=== PATIENT | female | born 1990 | race Caucasian/White ===

== ENCOUNTER → 2017-03-23 | Outpatient (CLI) | payer MEDICAID ==
--- NOTE | 2017-03-23 16:29 | RADIOLOGY REPORT (SQ) ---
EXAM DESCRIPTION: U/S [id number] TRNABD 1GES W/ODOP COMPLETED DATE/TIME: 03/23/2017 3:22 pm REASON FOR STUDY: ENC FOR SUPERVISION OF OTHER NORMAL , FIRST TRIMESTER (Z34.81) Z34.81 EN COUNTER FOR SUPRVSN OF NORMAL , FIRST TRIM COMPARISON: OB ultrasound 01/23/2016 TECHNIQUE: Transabdominal static and realtime grayscale images acquired of the pelvis. Additional se lected spectral and color Doppler images recorded. All images stored on PACs. bHCG: Not available LIMITATIONS: None. FINDINGS: FETUS: Living intrauterine . EGA: 11 weeks 0 days ALLY: 10/12/2017 FHR: 153 beats per minute. SUBCHORIONIC BLEED: 9 SIZE OF BLEED: Not applicable. UTERUS: 10 x 9 x 6 cm in size CERVICAL LENGTH: 3 cm Closed. RIGHT ADNEXA: Not visualized LEFT ADNEXA: Not visualized FREE FLUID: None. OTHER: No other significant finding. IMPRESSION: LIVING INTRAUTERINE . EGA 11 weeks 0 days Trimester of : First - 0 to 13 weeks. TECHNICAL DOCUMENTATION: JOB ID: [id number] [employer]- All Rights Reserved
== END ==
LOC: RAD 13:51
PROVIDERS: ATTEND Nurse Practitioner Women's Health
DX: Z34.81 Encounter for supervision of other normal pregnancy, first trimester (principal)
CPT/HCPCS: 76801

== ENCOUNTER 2017-05-02 20:47 | Emergency (ER) | payer MEDICAID ==
--- NOTE | 2017-05-02 21:52 | ER Document Report ---
ED Medical Screen (RME) - General Chief Complaint: Abdominal Pain Stated Complaint: ABDOMINAL PAIN Time Seen by Provider: 05/02/17 21:50 Mode of Arrival: Ambulatory Information source: Patient Notes: 26-year-old female presents to ED for abdominal pain with nausea. Vomiting and diarrhea this morning. She is 17 weeks , her last ultrasound was a week ago. She denies any fever. Abdomen soft bowel sounds present lungs clear. I have greeted and performed a rapid initial assessment of this patient. A comprehensive ED assessment and evaluation of the patient, analysis of test results and completion of medical decision making process will be conducted by an additional ED providers. TRAVEL OUTSIDE OF THE [place] IN LAST 30 DAYS: No - Related Data Allergies/Adverse Reactions: No Known Allergies Allergy (Unverified 05/02/17 21:12) Past Medical History Renal/ Medical History: Denies: Hx Peritoneal Dialysis Past Surgical History: Reports: Hx Section - Immunizations Hx Diphtheria, Pertussis, Tetanus Vaccination: No Physical Exam - Vital signs Vitals: Temp Pulse Resp BP Pulse Ox 98.4 F 94 18 121/50 L 100 05/02/17 21:08 05/02/17 21:08 05/02/17 21:08 05/02/17 21:08 05/02/17 21:08 Course - Vital Signs Vital signs: Temp Pulse Resp BP Pulse Ox 98.4 F 94 18 121/50 L 100 05/02/17 21:08 05/02/17 21:08 05/02/17 21:08 05/02/17 21:08 05/02/17 21:08 - Laboratory Result Diagrams: 05/02/17 21:25 05/02/17 21:25
[2017-05-02 21:56] LABS: ABSOLUTE LYMPHOCYTES (AUTO) 1.3 10^3/uL (0.5-4.7); ABSOLUTE MONOCYTES (AUTO) 0.6 10^3/uL (0.1-1.4); ABSOLUTE NEUT (AUTO) 9.2 10^3/uL (1.7-8.2); BASOPHILS % (AUTO) 0.2 % (0-2); EOSINOPHILS % (AUTO) 0.4 % (0-6); HEMATOCRIT 33.9 % (36.0-47.0); HEMOGLOBIN 11.8 g/dL (12.0-15.5); HGB HCT DIFFERENCE 1.5; LYMPHOCYTES % (AUTO) 11.8 % (13-45); MEAN CORPUSCULAR HEMOGLOBIN 33.4 pg (27.0-33.4); MEAN CORPUSCULAR HGB CONC 34.9 g/dL (32.0-36.0); MEAN CORPUSCULAR VOLUME 96 fl (80-97); MONOCYTES % (AUTO) 5.7 % (3-13); RED BLOOD COUNT 3.54 10^6/uL (3.72-5.28); RED CELL DISTRIBUTION WIDTH 13.2 % (11.5-14.0); SEGMENTED NEUTROPHILS % (AUTO) 81.9 % (42-78); WHITE BLOOD COUNT 11.2 10^3/uL (4.0-10.5)
[2017-05-02 21:58] LABS: APPEARANCE,URINE CLEAR; BILIRUBIN,URINE NEGATIVE (NEGATIVE); GLUCOSE, URINE NEGATIVE (NEGATIVE); KETONES,URINE NEGATIVE (NEGATIVE); LEUKOCYTE ESTERASE,URINE NEGATIVE (NEGATIVE); NITRITE,URINE NEGATIVE (NEGATIVE); PROTEIN,URINE NEGATIVE (NEGATIVE); URINE SPECIFIC GRAVITY 1.006; UROBILINOGEN,URINE NEGATIVE mg/dL (<2.0)
[2017-05-02 22:10] LABS: ALANINE AMINOTRANSFERASE 21 U/L (9-52); ALBUMIN 3.6 g/dL (3.5-5.0); ALKALINE PHOSPHATASE 78 U/L (38-126); ANION GAP 9 (5-19); ASPARTATE AMINO TRANSFERASE 11 U/L (14-36); BILIRUBIN,DIRECT 0.3 mg/dL (0.0-0.4); BILIRUBIN,TOTAL 0.3 mg/dL (0.2-1.3); BLOOD UREA NITROGEN 7 mg/dL (7-20); CALCIUM 9.2 mg/dL (8.4-10.2); CARBON DIOXIDE 25 mmol/L (22-30); CHLORIDE 104 mmol/L (98-107); CREATININE RESULT 0.57 mg/dL (0.52-1.25); GLUCOSE 96 mg/dL (75-110); POTASSIUM 4.5 mmol/L (3.6-5.0); SODIUM 137.5 mmol/L (137-145); TOTAL PROTEIN 6.5 g/dL (6.3-8.2)
--- NOTE | 2017-05-03 00:57 | ER Document Report ---
ED General - General Chief Complaint: Abdominal Pain Stated Complaint: ABDOMINAL PAIN Time Seen by Provider: 05/02/17 21:50 Mode of Arrival: Ambulatory Notes: Patient is a 26-year-old female A1 at 17 weeks who presents with an episode of lower abdominal pain radiating to her bilateral hips that was present earlier today but has since resolved. States when it was present it was a severe, aching, stabbing pain to the lower abdomen. It did resolve without intervention. Nothing triggered the episode. She does not believe she has had similar symptoms in the past. She denies any associated nausea, vomiting or fever. TRAVEL OUTSIDE OF THE [place] IN LAST 30 DAYS: No - Related Data Allergies/Adverse Reactions: codeine Allergy (Verified 05/02/17 23:44) Past Medical History - General Information source: Patient - Social History Smoking Status: Never Smoker Frequency of alcohol use: None Drug Abuse: None Lives with: Spouse/Significant other Family History: Reviewed & Not Pertinent Patient has suicidal ideation: No Patient has homicidal ideation: No Renal/ Medical History: Denies: Hx Peritoneal Dialysis Past Surgical History: Reports: Hx Section - Immunizations Hx Diphtheria, Pertussis, Tetanus Vaccination: No Review of Systems - Review of Systems Notes: Constitutional: Negative for fever. HENT: Negative for sore throat. Eyes: Negative for visual changes. Cardiovascular: Negative for chest pain. Respiratory: Negative for shortness of breath. Gastrointestinal: Positive for abdominal pain now resolved Genitourinary: Negative for dysuria. Musculoskeletal: Negative for back pain. Skin: Negative for rash. Neurological: Negative for headaches, weakness or numbness. 10 point ROS negative except as marked above and in HPI. Physical Exam - Vital signs Vitals: Temp Pulse Resp BP Pulse Ox 98.4 F 94 18 121/50 L 100 05/02/17 21:08 05/02/17 21:08 05/02/17 21:08 05/02/17 21:08 05/02/17 21:08 Interpretation: Normal Notes: PHYSICAL EXAMINATION: GENERAL: Well-appearing, well-nourished and in no acute distress. HEAD: Atraumatic, normocephalic. EYES: Pupils equal round and reactive to light, extraocular movements intact, sclera anicteric, conjunctiva are normal. ENT: nares patent, oropharynx clear without exudates. Moist mucous membranes. NECK: Normal range of motion, supple without lymphadenopathy LUNGS: Breath sounds clear to auscultation bilaterally and equal. No wheezes rales or rhonchi. HEART: Regular rate and rhythm without murmurs ABDOMEN: Soft, nontender, normoactive bowel sounds. No guarding, no rebound. No masses appreciated. EXTREMITIES: Normal range of motion, no pitting or edema. No cyanosis. NEUROLOGICAL: No focal neurological deficits. Moves all extremities spontaneously and on command. PSYCH: Normal mood, normal affect. SKIN: Warm, Dry, normal turgor, no rashes or lesions noted. Course - Re-evaluation Re-evalutation: 05/03/17 00:56 Patient is currently and presenting with lower abdominal pain. No vaginal bleeding or discharge. Bedside ultrasound shows a viable intrauterine , appropriate cardiac activity and active movement. Patient denies any dysuria and urinalysis is not consistent with an acute urinary tract infection. The patient does not have any focal right lower quadrant tenderness, rebound or guarding to suggest acute appendicitis. No right upper quadrant tenderness to suggest cholestasis of or an acute cholecystitis. Patient has tolerated oral intake here in the emergency department without difficulty. Vitals are within normal limits. At this time will discharge with return precautions and follow-up recommendations. Verbal discharge instructions given a the bedside and opportunity for questions given. Medication warnings reviewed. Patient is in agreement with this plan and has verbalized understanding of return precautions and the need for primary care follow-up in the next 24-72 hours. - Vital Signs Vital signs: Temp Pulse Resp BP Pulse Ox 98.4 F 89 20 127/76 H 100 05/02/17 21:08 05/03/17 01:00 05/03/17 01:00 05/03/17 01:00 05/03/17 01:00 - Laboratory Result Diagrams: 05/02/17 21:25 05/02/17 21:25 Laboratory results interpreted by me: 05/02/17 05/02/17 21:25 21:25 WBC 11.2 H RBC 3.54 L Hgb 11.8 L Hct 33.9 L Seg Neutrophils % 81.9 H Lymphocytes % 11.8 L Absolute Neutrophils 9.2 H AST 11 L Beta HCG, Quant 55958.00 H Discharge - Discharge Clinical Impression: Abdominal pain during in second trimester Condition: Good Disposition: HOME, SELF-CARE Additional Instructions: Please follow-up with your [facility] as needed. Return if you have worsening of your abdominal pain, vaginal bleeding, vaginal discharge, persistent vomiting, fever greater than 101F, or any other symptoms that are worrisome to you. Referrals: STARR HENRIQUEZ MD [Primary Care Provider] - Follow up as needed
[2017-05-03 01:00] VITALS: BP 127/76
== END 2017-05-03 01:00 | disposition home or self-care (01) ==
LOC: ER 20:47
DX: O26.892 Other specified pregnancy related conditions, second trimester (principal); R10.30 Lower abdominal pain, unspecified; Z3A.17 17 weeks gestation of pregnancy; Z88.5 Allergy status to narcotic agent
CPT/HCPCS: 36415; 80053; 81001; 83690; 84702; 85025; 99284

== ENCOUNTER 2017-10-06 05:03 | Inpatient (IN) | payer MEDICAID ==
[2017-10-05 12:46] LABS: APPEARANCE,URINE SLIGHTLY-CLOUDY; BILIRUBIN,URINE NEGATIVE (NEGATIVE); COLOR,URINE YELLOW; GLUCOSE, URINE NEGATIVE (NEGATIVE); KETONES,URINE NEGATIVE (NEGATIVE); LEUKOCYTE ESTERASE,URINE NEGATIVE (NEGATIVE); NITRITE,URINE NEGATIVE (NEGATIVE); PROTEIN,URINE NEGATIVE (NEGATIVE); URINE SPECIFIC GRAVITY 1.014; UROBILINOGEN,URINE NEGATIVE mg/dL (<2.0)
[2017-10-05 12:47] LABS: ABSOLUTE EOSINOPHILS # (AUTO) 0.1 10^3/uL (0.0-0.6); ABSOLUTE LYMPHOCYTES (AUTO) 1.7 10^3/uL (0.5-4.7); ABSOLUTE MONOCYTES (AUTO) 0.8 10^3/uL (0.1-1.4); ABSOLUTE NEUT (AUTO) 8.3 10^3/uL (1.7-8.2); BASOPHILS % (AUTO) 0.1 % (0-2); EOSINOPHILS % (AUTO) 0.6 % (0-6); HEMATOCRIT 34.9 % (36.0-47.0); HEMOGLOBIN 12.1 g/dL (12.0-15.5); LYMPHOCYTES % (AUTO) 15.9 % (13-45); MEAN CORPUSCULAR HEMOGLOBIN 32.6 pg (27.0-33.4); MEAN CORPUSCULAR HGB CONC 34.7 g/dL (32.0-36.0); MEAN CORPUSCULAR VOLUME 94 fl (80-97); MONOCYTES % (AUTO) 7.4 % (3-13); PLATELET COUNT 254 10^3/uL (150-450); RED BLOOD COUNT 3.72 10^6/uL (3.72-5.28); TOTAL CELLS COUNTED % (AUTO) 100 %; WHITE BLOOD COUNT 10.8 10^3/uL (4.0-10.5)
[2017-10-05 12:58] LABS: URINE AMPHETAMINES SCREEN NEGATIVE; URINE BARBITURATES SCREEN NEGATIVE; URINE BENZODIAZEPINES SCREEN NEGATIVE; URINE COCAINE SCREEN NEGATIVE; URINE METHADONE SCREEN NEGATIVE; URINE PHENCYCLIDINE SCREEN NEGATIVE
[2017-10-05 13:29] LABS: URINE MARIJUANA (THC) SCREEN UNCONFIRMED POSITIVE
[~2017-10-06 05:03] MED LIST: CEFAZOLIN 2 GM/D5W RTU 2 GM/50 ML RTUPB IV PRN
[2017-10-06] MEDS ORDERED: RINGERS SOLUTION,LACTATED 1,000 ML IV PRN ×2 (06:21→10:16)
[2017-10-06] MEDS ORDERED: RINGERS SOLUTION,LACTATED 1,000 ML IV ONE (06:30)
[2017-10-06] MEDS ORDERED: ONDANSETRON HCL INJ/PF 4 MG/2 ML SDV ONE (07:22)
[2017-10-06] MEDS ORDERED: PROPOFOL INJ 200 MG/20 ML VIAL IV ONE (07:22)
[2017-10-06] MEDS ORDERED: KETAMINE HCL INJ 500 MG/10 ML VIAL ONE (07:22)
[2017-10-06] MEDS ORDERED: OXYTOCIN/NORMAL SALINE 20 UNIT/1,000 ML RTUINJ ONE (07:22)
[2017-10-06] MEDS ORDERED: EPHEDRINE SULFATE INJ 50 MG/1 ML AMPULE ONE (07:23)
[2017-10-06] MEDS ORDERED: OXYTOCIN 10 UNIT/ML VIAL ONE (07:23)
[2017-10-06] MEDS ORDERED: MIDAZOLAM 2 MG/2 ML INJ ONE (07:23)
[2017-10-06] MEDS ORDERED: FENTANYL CITRATE INJ/PF 100 MCG/2 ML AMPUL ONE ×2 (07:23→09:02)
[2017-10-06] MEDS ORDERED: ACETAMINOPHEN 100 ML IV ONE (07:27)
[2017-10-06] MEDS ORDERED: FENTANYL CITRATE INJ/PF 100 MCG/2 ML AMPUL IV PRN ×3 (08:14)
[2017-10-06] MEDS ORDERED: PROMETHAZINE HCL INJ 25 MG/1 ML VIAL IV PRN ×2 (08:14→10:16)
[2017-10-06] MEDS ORDERED: DIPHENHYDRAMINE HCL 50 MG/ML VIAL IV PRN (08:14)
[2017-10-06] MEDS ORDERED: ACETAMINOPHEN 325 MG TABLET PO PRN (10:16)
[2017-10-06] MEDS ORDERED: OXYCODONE-ACETAMINOPHEN 5-325 MG TABLET PO PRN (10:16)
[2017-10-06] MEDS ORDERED: DIPH/PERTUSS(ACELL)/TETANUS VAC/PF 0.5 ML SYR (>=10YO) IM PRN (10:16)
[2017-10-06] MEDS ORDERED: MEASLES,MUMPS&RUBELLA VACC/PF 0.5 ML VIAL SUBCUT PRN (10:16)
[2017-10-06] MEDS ORDERED: HYDROMORPHONE HCL INJ/PF 2 MG/ML AMPULE IV PRN (10:16)
[2017-10-06] MEDS ORDERED: OXYTOCIN/NORMAL SALINE 20 UNIT/1,000 ML RTUINJ IV PRN (10:16)
[2017-10-06] MEDS ORDERED: ACETAMINOPHEN 100 ML IV PRN (10:16)
[2017-10-06] MEDS ORDERED: HYDROMORPHONE HCL INJ/PF 2 MG/ML AMPULE ONE (10:26)
[2017-10-06] MEDS ORDERED: KETOROLAC TROMETHAMINE INJ/PF 30 MG/1 ML SDV ONE (10:26)
--- NOTE | 2017-10-06 12:32 | Brief Operative Note ---
BRIEF OPERATIVE REPORT DATE OF SURGERY: 10/06/17 TIME OF SURGERY: 09:35 PREOPERATIVE DIAGNOSIS: Undesired Fertility, h/o section, , 39+ 1ega POSTOPERATIVE DIAGNOSIS: SHAW- delivered SURGEON: KRISH FERRARA FINDINGS: uterus scarred to anterior abdominal wall. Omentum adhered to abdominal wall. Time of 0825, VFI, weight 5#14oz, 2665g, Apgars 9/9, IVF 1800, UOP 200ml COMPLICATIONS: None ESTIMATED BLOOD LOSS: 700ml TISSUE REMOVED OR ALTERED: placenta and cord sent to pathology TECHNICAL PROCEDURE: RELTCS with scar revision and BTL
[2017-10-06] MEDS: OXYCODONE-ACETAMINOPHEN 5-325 MG TABLET PO PRN ×3 (13:15→22:18)
--- NOTE | 2017-10-06 15:24 | PDOC DELIVERY SUMMARY ---
Delivery Summary - Maternal Hx : III Hx Para: I Hx # Term Pregnancies: 1 Hx # Pregnancies: 0 Hx Total # of Abortions (Sponateous & Elective): 0 Number of Living Children: 1 ALLY: 10/12/17 Gestational Age: 39.1 Risk Factors: Previous Ruptured Membranes: AROM Time of Rupture: 08:22 Fluids: Clear - Delivery Labor: Not In Labor Presentation: Vertex Heart Rate Monitoring: Done Pre-Operatively Uterine Contraction Monitoring: External Support Person Present: Yes Location: OR : Scheduled, Repeat Placenta: Within Normal Limits Placenta Description: normal Number of Vessels (Cord): 3 Nuchal Cord: Yes Delivery of Placenta Date: 10/06/17 Delivery of Placenta Time: 08:26 - Medications Type of Anesthesia:: Spinal - Assess and Care Baby 1 Female Delivery of Date: 10/06/17 Delivery of Infant Time: 08:25 at 1 minute: 9 at 5 minutes: 9 Preprinted Number On Band: [id number] Skin to Skin: Yes Skin to Skin (Mins): 5 To Nursery At: 08:32 Mode of Transport: Bassinet Delivery Weight: 2,665 Delivery Length: 18 in - Delivery Personnel Car Rental Deliverer: JA MILLS RN: MICHAEL TUCKER MD: KRISH FRERARA
[2017-10-06] MEDS: DOCUSATE SODIUM 100 MG CAPSULE PO SCH (17:56)
[2017-10-06] MEDS: KETOROLAC TROMETHAMINE INJ/PF 30 MG/1 ML SDV IV SCH (17:56)
[2017-10-06] MEDS: SIMETHICONE 80 MG TAB.CHEW PO PRN (22:21)
[2017-10-07] MEDS: KETOROLAC TROMETHAMINE INJ/PF 30 MG/1 ML SDV IV SCH ×2 (02:01→09:38)
[2017-10-07] MEDS: OXYCODONE-ACETAMINOPHEN 5-325 MG TABLET PO PRN ×2 (06:46→13:32)
[2017-10-07] MEDS: SIMETHICONE 80 MG TAB.CHEW PO PRN ×3 (06:47→18:06)
[2017-10-07 08:02] LABS: HEMOGLOBIN 10.7 g/dL (12.0-15.5); MEAN CORPUSCULAR HGB CONC 33.6 g/dL (32.0-36.0); MEAN CORPUSCULAR VOLUME 95 fl (80-97); PLATELET COUNT 208 10^3/uL (150-450); RED BLOOD COUNT 3.36 10^6/uL (3.72-5.28); RED CELL DISTRIBUTION WIDTH 14.4 % (11.5-14.0); WHITE BLOOD COUNT 13.4 10^3/uL (4.0-10.5)
[2017-10-07] MEDS: PRENATAL VITAMIN W DHA CAPSULE PO SCH (09:38)
[2017-10-07] MEDS: DOCUSATE SODIUM 100 MG CAPSULE PO SCH ×2 (09:38→18:05)
--- NOTE | 2017-10-07 13:01 | PDOC PROGRESS REPORT ---
Subjective-OB Subjective: Post Delivery Day: 26 year old. Denies any needs at this time. Pt doing well, no concerns. Reports light bleeding, regular diet and voiding well, has not passed gas yet and complains of gas pain in abd. Ambulatory. Physical Exam (OB) Vital Signs: Temp Pulse Resp BP Pulse Ox 98.0 F 95 18 129/72 H 98 10/07/17 11:35 10/07/17 11:35 10/07/17 11:35 10/07/17 11:35 10/07/17 11:35 Intake & Output 10/06/17 10/07/17 10/08/17 06:59 06:59 06:59 Intake Total 490 240 Output Total 800 Balance -310 240 Weight 113.6 kg - PIH/Pre-Eclampsia Clonus: Negative - Dressing Removed: - Dermatape Incision: Well Approximated Closure Type: Surgical Glue - Lochia Lochia Amount: Scant < 10 ml Lochia Color: Rubra/Red - Abdomen Description: Tender, Soft, Round Hernia Present: No Fundal Description: Firm, Midline Fundal Height: u/u - u/2 Objective-Diagnostic Laboratory: 10/07/17 07:42 10/07/17 10/07/17 07:42 07:42 WBC 13.4 H RBC 3.36 L Hgb 10.7 L Hct 32.0 L MCV 95 MCH 32.0 MCHC 33.6 RDW 14.4 H Plt Count 208 Blood Type O NEGATIVE Assessment and Plan(PN) - Assessment and Plan (1) History of section, low transverse Is this a current diagnosis for this admission?: Yes (2) Multiparity Is this a current diagnosis for this admission?: Yes (3) Sterilization Is this a current diagnosis for this admission?: Yes - Time Spent with Patient Time with patient: Less than 15 minutes Medications reviewed and adjusted accordingly: Yes - Disposition Anticipated Discharge: Home Within: within 48 hours
[2017-10-07] MEDS: IBUPROFEN 800 MG TABLET PO SCH ×2 (18:06→23:45)
[2017-10-08] MEDS: IBUPROFEN 800 MG TABLET PO SCH ×2 (05:55→11:19)
[2017-10-08] MEDS: OXYCODONE-ACETAMINOPHEN 5-325 MG TABLET PO PRN (09:48)
[2017-10-08] MEDS: SIMETHICONE 80 MG TAB.CHEW PO PRN (10:30)
[2017-10-08] MEDS: DOCUSATE SODIUM 100 MG CAPSULE PO SCH (10:30)
[2017-10-08] MEDS: PRENATAL VITAMIN W DHA CAPSULE PO SCH (10:30)
--- NOTE | 2017-10-08 13:15 | PDOC DISCHARGE SUMMARY ---
Final Diagnosis Discharge Date: 10/08/17 - Final Diagnosis (1) History of section, low transverse Is this a current diagnosis for this admission?: Yes (2) Multiparity Is this a current diagnosis for this admission?: Yes (3) Sterilization Is this a current diagnosis for this admission?: Yes Discharge Data - Discharge Medication Home Medications: No Home Medications 01/24/16 Reason(s) for Admission: Ceasarean Section-Repeat Procedures: NST Intrapartum Procedure(s): : Low Cervical, Transverse - Diagnosis Test Laboratory: Temp Pulse Resp BP Pulse Ox 97.9 F 91 18 116/69 98 10/08/17 11:58 10/08/17 11:58 10/08/17 11:58 10/08/17 11:58 10/08/17 11:58 10/05/17 10/05/17 10/07/17 12:00 12:05 07:42 RBC 3.72 3.36 L Hgb 12.1 10.7 L Hct 34.9 L 32.0 L Urine Opiates Screen NEGATIVE - Discharge information/Instructions Discharge Activity: Balance Activity w/Rest, No Lifting Over 10 Pounds, No Lifting/Push/Pulling, Pelvic Rest, No tub bath Discharge Diet: Regular Disposition: HOME, SELF-CARE Follow up with: [facility] in: 5, Days
[2017-10-08 13:24] VITALS: BP 121/67
--- NOTE | 2017-10-14 03:36 | Operative Report ---
Operative Report DATE OF SURGERY: 10/06/17 PREOPERATIVE DIAGNOSIS: Undesired Fertility, h/o section, , 39+ 1ega POSTOPERATIVE DIAGNOSIS: SHAW- delivered OPERATION: RELTCS with scar revision and BTL SURGEON: KRISH FERRARA ANESTHESIA: Spinal TISSUE REMOVED OR ALTERED: placenta and cord sent to pathology ESTIMATED BLOOD LOSS: 700ml INTRAOPERATIVE FINDINGS: uterus scarred to anterior abdominal wall. Omentum adhered to abdominal wall. Right tube surgically absent. Time of 0825, VFI, weight 5#14oz, 2665g, Apgars 9/9, IVF 1800, UOP 200ml PROCEDURE: Anesthesia provider: [Jayden Trammell MD, [facility]] Urine output: [200ml clear urine] IV fluids: [1800ml] Complications: [None] Specimens: [None] Indications: [27yo at 39+1ega presents for Repeat section scheduled. SHe declines TOLAC and desires repeat section. She is 100 % sure that she has completed childbearing and desires to proceed with tubal ligation at the time of the procedure. The risk, benefits, alternatives were reviewed with the patient and she desires to proceed with Repeat section and bilateral tubal ligation. she reports history of Right fallopian tube removed due to ectopic .] Procedure: The patient was taken to the operating room where spinal anesthesia was obtained and found to be adequate. She was then prepped and draped in the normal sterile fashion and placed in the dorsal supine position with a leftward tilt. A Pfannenstiel skin incision was then made and carried through to the underlying layers of the fascia with the scalpel after excising the thickened prior pfannensteil incision. The fascia was incised in the midline and the incision extended laterally with the Kim scissors. The superior aspect of the fascial incision was then grasped with Berkley clamps elevated and the underlying rectus muscles dissected off with careful dissection due to severe omental adhesions to anterior abdominal wall and uterine body adhered to anterior abdominal wall from fundus to bladder. Attention was then turned to the inferior aspect of the fascial incision which in a similar fashion was grasped, tented up with Sharmin clamps, and the rectus muscles dissected off [bluntly]. The rectus muscles were then in the midline again with careful dissection due to severe adhesions of uterus to anterior abdominal wall and omentum. The peritoneal incision was then extended superiorly and inferiorly with good visualization of the bladder. The bladder blade was inserted and the vesicouterine peritoneum identified grasped with Chadian pickups and entered sharply with the Metzenbaum scissors. This incision was then extended laterally with the Metzenbaum scissors and a bladder flap created digitally. The bladder blade was then reinserted and the lower uterine segment incised in a transverse fashion with the scalpel. The uterine incision was then extended bluntly. The bladder blade was removed and the infant's head was delivered from cephalic presentation atraumatically. The nose and mouth were suctioned and the cord doubly clamped and cut. And the infant was handed off to waiting pediatricians. The placenta was then delivered spontaneously and the uterus exteriorized and cleared of all clots and debris. The uterine incision was then repaired with 1- 0 Vicryl in a running locked fashion. A second layer of the same suture was used to obtain hemostasis via imbrication of the initial layer. Multiple sites on the uterus were repaired in a layered fashion were the adhesions from the anterior abdominal wall were removed. The bladder flap was then repaired with 3 -0 chromic in a running fashion. The right fallopian tube was noted to be surgically absent. The Left fallopian tube was then followed out to the fimbriated end and the mid ampullary portion was identified and occluded with filschie clip times 2. The uterus was returned to the patient's abdomen and Interceed was placed overlying the uterine incision to prevent adhesions. The gutters were cleared of all clots and debris. All operative sites were noted to be hemostatic. The fascia was reapproximated with 0 Vicryl in a running fashion from each lateral edge to the midline. The skin was closed with 3-0 Monocryl in a running subcuticular fashion with overlying Dermabond for additional dressing as well as wound closure. The patient tolerated the procedure well. Sponge lap needle and instrument counts are correct times 2. 2 g of Ancef were given prior to skin incision. The patient was taken to the recovery area awake and in stable condition.
== END 2017-10-08 14:45 | disposition home or self-care (01) | DRG 765 ==
LOC: 2S 05:03
PROVIDERS: ADMIT Student in an Organized Health Care Education/Training Program; ATTEND Student in an Organized Health Care Education/Training Program
PROC: 0UL60CZ Occlusion of Left Fallopian Tube with Extraluminal Device, Open Approach (ICD-10-PCS; 2017-10-06)
PROC: 0DNU0ZZ Release Omentum, Open Approach (ICD-10-PCS; 2017-10-06)
PROC: 4A1HXCZ Monitoring of Products of Conception, Cardiac Rate, External Approach (ICD-10-PCS; 2017-10-06)
PROC: 10D00Z1 Extraction of Products of Conception, Low, Open Approach (ICD-10-PCS; principal; 2017-10-06 07:45)
DX: O34.211 Maternal care for low transverse scar from previous cesarean delivery (principal); Z68.41 Body mass index [BMI] 40.0-44.9, adult; O99.324 Drug use complicating childbirth; O99.89 Other specified diseases and conditions complicating pregnancy, childbirth and the puerperium; N73.6 Female pelvic peritoneal adhesions (postinfective); O99.334 Smoking (tobacco) complicating childbirth; F17.210 Nicotine dependence, cigarettes, uncomplicated; E66.9 Obesity, unspecified; O99.214 Obesity complicating childbirth; F12.90 Cannabis use, unspecified, uncomplicated; Z37.0 Single live birth; Z30.2 Encounter for sterilization; Z90.79 Acquired absence of other genital organ(s)
CPT/HCPCS: 1961; 36415; 59025; 80307; 81001; 85025; 85027; 85461; 86850; 86900; 86901; 94799; C1765; G0480; J0131; J0690; J1170; J1885; J2250; J2405; J2590; J2704; J2790; J3010; J3490; J7120

== ENCOUNTER 2017-10-16 01:17 | Emergency (ER) | payer MEDICAID ==
[2017-10-16] MEDS ORDERED: ACETAMINOPHEN 325 MG TABLET PO ONE (02:40)
[2017-10-16 03:25] LABS: ABSOLUTE EOSINOPHILS # (AUTO) 0.1 10^3/uL (0.0-0.6); ABSOLUTE LYMPHOCYTES (AUTO) 1.7 10^3/uL (0.5-4.7); ABSOLUTE MONOCYTES (AUTO) 0.7 10^3/uL (0.1-1.4); ABSOLUTE NEUT (AUTO) 7.3 10^3/uL (1.7-8.2); BASOPHILS % (AUTO) 0.4 % (0-2); EOSINOPHILS % (AUTO) 0.7 % (0-6); HEMATOCRIT 36.6 % (36.0-47.0); HEMOGLOBIN 12.7 g/dL (12.0-15.5); LYMPHOCYTES % (AUTO) 17.3 % (13-45); MEAN CORPUSCULAR HGB CONC 34.7 g/dL (32.0-36.0); MEAN CORPUSCULAR VOLUME 92 fl (80-97); MONOCYTES % (AUTO) 7.5 % (3-13); PLATELET COUNT 473 10^3/uL (150-450); RED BLOOD COUNT 3.97 10^6/uL (3.72-5.28); RED CELL DISTRIBUTION WIDTH 13.9 % (11.5-14.0); SEGMENTED NEUTROPHILS % (AUTO) 74.1 % (42-78); TOTAL CELLS COUNTED % (AUTO) 100 %; WHITE BLOOD COUNT 9.9 10^3/uL (4.0-10.5)
--- NOTE | 2017-10-16 03:45 | RADIOLOGY REPORT (SQ) ---
EXAM DESCRIPTION: CHEST SINGLE VIEW CLINICAL HISTORY: dyspnea COMPARISON: None. FINDINGS: Single frontal view of the chest. The cardiomediastinal silhouette has normal size and contour. No consolidation, pneumothorax, or pleural effusion. No displaced rib fractures identified. Upper abdominal soft tissues are unremarkable. IMPRESSION: 1. No acute pulmonary process identified.
[2017-10-16 03:57] LABS: ALANINE AMINOTRANSFERASE 32 U/L (9-52); ALBUMIN 3.6 g/dL (3.5-5.0); ALKALINE PHOSPHATASE 128 U/L (38-126); ANION GAP 10 (5-19); ASPARTATE AMINO TRANSFERASE 22 U/L (14-36); BILIRUBIN,DIRECT 0.2 mg/dL (0.0-0.4); BILIRUBIN,TOTAL 0.3 mg/dL (0.2-1.3); BLOOD UREA NITROGEN 13 mg/dL (7-20); CALCIUM 9.1 mg/dL (8.4-10.2); CARBON DIOXIDE 27 mmol/L (22-30); CHLORIDE 106 mmol/L (98-107); GLUCOSE 102 mg/dL (75-110); LDH 590 U/L (313-618); POTASSIUM 4.3 mmol/L (3.6-5.0); SODIUM 142.8 mmol/L (137-145); TOTAL PROTEIN 6.5 g/dL (6.3-8.2)
--- NOTE | 2017-10-16 04:21 | ER Document Report ---
ED General - General Chief Complaint: Headache >24 hrs old Stated Complaint: HEADACHE Time Seen by Provider: 10/16/17 02:30 Notes: Patient is a 26-year-old female presents with complaint of high blood pressure and headache. Patient says her blood pressure is been little bit high ever since she had a . was done on October 06. No fevers. No vomiting. No diarrhea. She does have some edema lower extremities that has been there since her . She says it tends to fluctuate. She says she has been had a lot of shortness of breath. Also some headaches. She was seen yesterday her OB doctor and they placed her on nifedipine. Since then she started developing a little bit more of a headache and knows her blood pressure was systolically 150s. She called her OB doctor told her to come to the ER for further evaluation. Patient denies any preeclampsia during . She denies any complications during her . She has no other complaints at this time. Section was performed because the patient had a on her prior . TRAVEL OUTSIDE OF THE [place] IN LAST 30 DAYS: No - Related Data Allergies/Adverse Reactions: codeine Allergy (Verified 10/16/17 01:36) Past Medical History - Social History Smoking Status: Never Smoker Chew tobacco use (# tins/day): No Frequency of alcohol use: None Drug Abuse: None Family History: Reviewed & Not Pertinent Patient has suicidal ideation: No Patient has homicidal ideation: No Renal/ Medical History: Denies: Hx Ovarian Cysts, Hx Peritoneal Dialysis, Hx Pelvic Inflammatory Disease Malignancy Medical History: Denies: Hx Breast Cancer, Hx Cervical Cancer, Hx Ovarian Cancer GI Medical History: Reports: Hx Gastroesophageal Reflux Disease - gestational. Denies: Hx Hiatal Hernia, Hx Ulcer Psychiatric Medical History: Reports: Hx Bipolar Disorder Denies: Hx Depression, Hx Post Traumatic Stress Disorder, Hx Schizophrenia Past Surgical History: Reports: Hx Section - Immunizations Hx Diphtheria, Pertussis, Tetanus Vaccination: No Review of Systems - Review of Systems Notes: My Normal Review Basic REVIEW OF SYSTEMS: CONSTITUTIONAL : Denies fever, chills, or sweats. Denies recent illness. EENT: Denies eye, ear, throat, or mouth pain or symptoms. Denies nasal or sinus congestion. CARDIOVASCULAR: Denies chest pain. RESPIRATORY: Denies cough, cold, or chest congestion. Mild dyspnea. GASTROINTESTINAL: Denies abdominal pain. Denies nausea, vomiting, or diarrhea. Denies constipation. Last BM: MUSCULOSKELETAL: Some lower extremity edema. SKIN: Denies rash or skin lesions. NEUROLOGICAL: Denies altered mental status or loss of consciousness. Has a headache. Denies weakness or paralysis or loss of use of either side. Denies problems with gait or speech. Denies sensory or motor loss. ALL OTHER SYSTEMS REVIEWED AND NEGATIVE. Physical Exam - Vital signs Vitals: Temp Pulse Resp BP Pulse Ox 98.3 F 72 21 H 132/74 H 97 10/16/17 01:45 10/16/17 01:45 10/16/17 01:45 10/16/17 01:45 10/16/17 01:45 - Notes Notes: General Appearance: Well nourished, alert, cooperative, no acute distress, no obvious discomfort. Vitals: reviewed, See vital signs table. Head: no swelling or tenderness to the head Eyes: PERRL, EOMI, Conjuctiva clear Mouth: No decreasd moisture Lungs: No wheezing, No rales, No rhonci, No accessory muscle use, good air exchange bilaterally. Heart: Normal rate, Regular rythm, No murmur, no rub Abdomen: Normal BS, soft, No rigidity, No abdominal tenderness, No guarding, no rebound, no abdominal masses, no organomegaly Extremities: strength 5/5 in all extremities, good pulses in all extremities, no swelling or tenderness in the extremities, 2+ bilateral lower extremity edema. Skin: warm, dry, appropriate color, no rash Neuro: speech clear, oriented x 3, normal affect, responds appropriately to questions. Cranial nerves II through XII are intact. Distal sensation intact. Patient moves all extremities without difficulty. Course - Re-evaluation Re-evalutation: 10/16/17 05:56 Patient is feeling much improved. Her blood pressure is normal and her headache is gone after Tylenol. Her headache did not start today until starting her new medications. She was started on sertraline which sometimes can cause headaches. I informed her in the morning when she takes her medications she should take her nifedipine first. After that she should wait several hours and then take her sertraline. She develops a headache after taking the sertraline that I suspect this could be the culprit her headache. I did do a workup for preeclampsia. Uric acid was mildly elevated but the remainder of her labs were normal. Her LDH was normal. She had no protein in her urine. Her blood pressure is normalized. She looks well. Her chest x- ray is clear. Feel she is safe to be discharged home. Being that she was sent in by the [facility] I did call and speak with Dr. Smalls was covering for [facility]. I did review her lab results with him and he agrees with the plan for her to follow-up in the office on Wednesday as she is already scheduled. Patient does have an upcoming appointment on Wednesday with Dr. Francis. Patient encouraged to return to ER if she has recurrent headaches , high blood pressure is not improved with her medication, difficulty breathing , or she feels unwell. Patient agrees with plan and will be discharged home. Dictation of this chart was performed using voice recognition software; therefore, there may be some unintended grammatical errors. - Vital Signs Vital signs: Temp Pulse Resp BP Pulse Ox 98.3 F 57 L 15 130/73 H 98 10/16/17 05:47 10/16/17 05:47 10/16/17 05:47 10/16/17 05:47 10/16/17 05:47 - Laboratory Result Diagrams: 10/16/17 03:15 10/16/17 03:15 Laboratory results interpreted by me: 10/16/17 10/16/17 03:15 03:15 Plt Count 473 H Uric Acid 8.0 H Alkaline Phosphatase 128 H Discharge - Discharge Clinical Impression: Hypertension Qualifiers: Hypertension type: unspecified Qualified Code(s): I10 - Essential (primary) hypertension Additional Instructions: Please follow up with Dr. Francis early next week for reevaluation. Please continue the blood pressure medication as prescribed. Please return to the ER immediately if you have worsening headaches, difficulty breathing, worsening edema in your legs, fevers, or feel unwell. Forms: Return to Work
[2017-10-16 05:24] LABS: APPEARANCE,URINE CLEAR; BILIRUBIN,URINE NEGATIVE (NEGATIVE); COLOR,URINE STRAW; GLUCOSE, URINE NEGATIVE (NEGATIVE); KETONES,URINE NEGATIVE (NEGATIVE); LEUKOCYTE ESTERASE,URINE NEGATIVE (NEGATIVE); NITRITE,URINE NEGATIVE (NEGATIVE); PROTEIN,URINE NEGATIVE (NEGATIVE); URINE SPECIFIC GRAVITY 1.008; UROBILINOGEN,URINE NEGATIVE mg/dL (<2.0)
[2017-10-16 05:50] VITALS: BP 130/73
== END 2017-10-16 05:55 | disposition home or self-care (01) ==
LOC: ER 01:17
DX: O14.95 Unspecified pre-eclampsia, complicating the puerperium (principal); O90.89 Other complications of the puerperium, not elsewhere classified; R51 Headache; R06.02 Shortness of breath; O99.345 Other mental disorders complicating the puerperium; F31.9 Bipolar disorder, unspecified; Z98.890 Other specified postprocedural states; Z88.5 Allergy status to narcotic agent
CPT/HCPCS: 99284; 36415; 83615; 84550; 85025; 80053; 81001; 71045; J3490

== ENCOUNTER 2020-04-02 20:31 | Emergency (ER) | payer SELFPAY ==
--- NOTE | 2020-04-02 22:01 | ER Document Report ---
ED Medical Screen (RME) - General Chief Complaint: Abdominal Pain Stated Complaint: CHEST PAIN/BACK PAIN Time Seen by Provider: 04/02/20 21:56 Mode of Arrival: Ambulatory Information source: Patient Notes: Patient presents complaining of chest pain that radiates through to her back. Patient points to the upper abdominal area though. Patient states that 3 or 4 days ago she had a temperature of 102. Patient states she has had nausea with diarrhea for the past month. Patient has had mild cough. Patient states she has known gallstones. I have greeted and performed a rapid initial assessment of this patient. A comprehensive ED assessment and evaluation of the patient, analysis of test results and completion of the medical decision making process will be conducted by additional ED providers. TRAVEL OUTSIDE OF THE [place] IN LAST 30 DAYS: No - Related Data Allergies/Adverse Reactions: codeine Allergy (Verified 10/16/17 01:36) Past Medical History - Social History Frequency of alcohol use: None Drug Abuse: Marijuana Renal/ Medical History: Denies: Hx Ovarian Cysts, Hx Peritoneal Dialysis, Hx Pelvic Inflammatory Disease Malignancy Medical History: Denies: Hx Breast Cancer, Hx Cervical Cancer, Hx Ovarian Cancer GI Medical History: Reports: Hx Gastroesophageal Reflux Disease - gestational. Denies: Hx Hiatal Hernia, Hx Ulcer Psychiatric Medical History: Reports: Hx Bipolar Disorder Denies: Hx Depression, Hx Post Traumatic Stress Disorder, Hx Schizophrenia Past Surgical History: Reports: Hx Section - Immunizations Hx Diphtheria, Pertussis, Tetanus Vaccination: No Physical Exam - Vital signs Vitals: Temp Pulse Resp BP Pulse Ox 98.2 F 62 18 152/93 H 98 04/02/20 21:02 04/02/20 21:02 04/02/20 21:02 04/02/20 21:02 04/02/20 21:02 - Abdominal Tenderness: Tender - Upper abdominal tenderness - Back Back: No: CVA tenderness Course - Vital Signs Vital signs: Temp Pulse Resp BP Pulse Ox 98.2 F 62 18 152/93 H 98 04/02/20 21:53 04/02/20 21:02 04/02/20 21:02 04/02/20 21:02 04/02/20 21:02
[2020-04-02 22:31] LABS: ABSOLUTE EOSINOPHILS # (AUTO) 0.1 10^3/uL (0.0-0.6); ABSOLUTE LYMPHOCYTES (AUTO) 2.6 10^3/uL (0.5-4.7); ABSOLUTE MONOCYTES (AUTO) 0.8 10^3/uL (0.1-1.4); ABSOLUTE NEUT (AUTO) 6.6 10^3/uL (1.7-8.2); BASOPHILS % (AUTO) 0.3 % (0-2); EOSINOPHILS % (AUTO) 1.1 % (0-6); HEMATOCRIT 41.5 % (36.0-47.0); HEMOGLOBIN 14.9 g/dL (12.0-15.5); LYMPHOCYTES % (AUTO) 25.9 % (13-45); MEAN CORPUSCULAR HEMOGLOBIN 33.3 pg (27.0-33.4); MEAN CORPUSCULAR HGB CONC 35.8 g/dL (32.0-36.0); MEAN CORPUSCULAR VOLUME 93 fl (80-97); MONOCYTES % (AUTO) 7.9 % (3-13); PLATELET COUNT 279 10^3/uL (150-450); RED BLOOD COUNT 4.48 10^6/uL (3.72-5.28); RED CELL DISTRIBUTION WIDTH 12.6 % (11.5-14.0); SEGMENTED NEUTROPHILS % (AUTO) 64.8 % (42-78); TOTAL CELLS COUNTED % (AUTO) 100 %; WHITE BLOOD COUNT 10.2 10^3/uL (4.0-10.5)
--- NOTE | 2020-04-02 22:41 | RADIOLOGY REPORT (SQ) ---
EXAM DESCRIPTION: XR CHEST 2 VIEWS COMPLETED DATE/TME: 04/02/2020 21:56 CLINICAL INDICATION: 29-year-old female with upper abdominal pain and cough. TECHNIQUE: Two-view, PA and lateral projections of the chest were obtained. COMPARISON: None. FINDINGS: Unremarkable cardiac and mediastinal silhouette. Heart size is normal. Lungs are clear without focal opacity, pneumothorax or pleural effusions. The visualized bones are within normal limits. IMPRESSION: No acute cardiopulmonary abnormalities.
[2020-04-02 22:45] LABS: ALBUMIN 4.2 g/dL (3.5-5.0); ALKALINE PHOSPHATASE 95 U/L (38-126); ANION GAP 6 (5-19); ASPARTATE AMINO TRANSFERASE 19 U/L (14-36); BILIRUBIN,TOTAL 0.4 mg/dL (0.2-1.3); BLOOD UREA NITROGEN 11 mg/dL (7-20); CARBON DIOXIDE 23 mmol/L (22-30); CHLORIDE 105 mmol/L (98-107); GLUCOSE 98 mg/dL (75-110); TOTAL PROTEIN 7.2 g/dL (6.3-8.2)
--- NOTE | 2020-04-02 22:57 | RADIOLOGY REPORT (SQ) ---
EXAM DESCRIPTION: Right upper quadrant abdominal ultrasound CLINICAL HISTORY: 29 years Female; upper abd pain TECHNIQUE: Abdominal ultrasound was performed. COMPARISON: Renal ultrasound 01/24/2016 FINDINGS: Pancreas: A portion of the head and body the pancreas are imaged and appear echogenic. The remainder the head and tail are not seen. Liver: Liver measures 13 cm in length. There is increased echogenicity consistent with fatty infiltration. Portal vein is patent with hepatopedal flow.. Gallbladder: Multiple gallstones are present within the gallbladder. Sludge is also seen. No para cholecystic fluid. No sonographic Dunn's. The wall is 2.5 mm. Common bile duct: 2.8 mm. Right kidney: The kidney measures 11.1 x 4.4 x 4.5 cm. Echogenicity is normal.. No hydronephrosis. Ascites: No free fluid. IMPRESSION: 1. Fatty infiltration of the liver. 2. Cholelithiasis.
[2020-04-03 00:54] LABS: APPEARANCE,URINE SLIGHTLY-CLOUDY; BILIRUBIN,URINE NEGATIVE (NEGATIVE); COLOR,URINE YELLOW; GLUCOSE, URINE NEGATIVE (NEGATIVE); KETONES,URINE NEGATIVE (NEGATIVE); LEUKOCYTE ESTERASE,URINE NEGATIVE (NEGATIVE); NITRITE,URINE NEGATIVE (NEGATIVE); PROTEIN,URINE NEGATIVE (NEGATIVE); URINE SPECIFIC GRAVITY 1.019; UROBILINOGEN,URINE NEGATIVE mg/dL (<2.0)
[2020-04-03 01:48] VITALS: BP 157/83
--- NOTE | 2020-04-03 22:01 | EKG REPORT ---
SEVERITY:- ABNORMAL ECG - SINUS ARRHYTHMIA, RATE 50-66 NONSPECIFIC INTRAVENTRICULAR CONDUCTION DELAY : Confirmed by: Lilian White MD 03-Apr-2020 22:01:23
== END 2020-04-03 05:08 | disposition left against medical advice (07) ==
LOC: ER 20:31
DX: R10.9 Unspecified abdominal pain (principal); R07.9 Chest pain, unspecified; M54.9 Dorsalgia, unspecified; R11.0 Nausea; R19.7 Diarrhea, unspecified; Z88.6 Allergy status to analgesic agent
CPT/HCPCS: 36415; 71046; 76705; 80053; 81001; 83690; 84703; 85025; 93005; 93010; 99281